=== PATIENT | female | born 1965 | race Caucasian/White ===

== ENCOUNTER 2017-12-09 10:56 | Observation (INO) ==
[2017-12-09] MEDS ORDERED: Aspirin 81 MG TAB.CHEW PO ONE (11:14)
[2017-12-09] MEDS ORDERED: Nitroglycerin 0.4 MG TAB.SUBL SL ONE ×2 (11:14→12:21)
--- NOTE | 2017-12-09 11:32 | Emergency Department Note ---
Disposition Clinical Impression: Chest pain Qualifiers: Chest pain type: unspecified Qualified Code(s): R07.9 - Chest pain, unspecified Disposition: Admitted As Inpatient Condition: Good Referrals: Ling Pelaez MD [Primary Care Provider] - Forms: ED Satisfaction Letter Time of Disposition: 12:54 General Adult HPI - General Chief complaint: ED Chest Pain Stated complaint: CP Time Seen by Provider: 12/09/17 11:08 Source: patient Mode of arrival: ambulatory Limitations: no limitations Nursing Notes Reviewed: Yes Vital Signs Reviewed: Yes - History of Present Illness HPI Narrative: 52 year old female with significant past medical history of hypothyroidism and hypotension presenting to the ED with chief complaint of chest pain. Patient states approximately 45 minutes prior to arrival she was walking around at work when she started having substernal chest pain. Denies nausea or diaphoresis with this. She went to the nurses station at work where they took her blood pressure and it was elevated at 150-160 systolic. Patient states she then decided to come to the emergency department. Patient denies any recent illnesses or fevers. Denies any stents or CABG. Patient has followed with Dr. Gillette in the past for her hypotension. Patient did have a stress test and cath completed 3-5 years ago. Patient still having chest pain at this time. Patient also states her chest pain in causing her some shortness of breath. Pain Scale: 4 - Related Data Home Medications Medication Instructions Recorded Confirmed Gabapentin [Neurontin] 300 mg PO TID 04/27/15 12/09/17 Levothyroxine [Synthroid] 75 mcg PO 0630 04/27/15 12/09/17 Meloxicam [Meloxicam] 15 mg PO DAILY 12/09/17 12/09/17 Previous Rx's Medication Instructions Recorded Cyclobenzaprine [Flexeril] 10 mg PO TID #15 tablet 10/13/16 Allergies Allergy/AdvReac Type Severity Reaction Status Date / Time Iodinated Contrast- Oral and Allergy Hives Verified 12/09/17 11:05 IV Dye Sulfa (Sulfonamide AdvReac Hives Verified 12/09/17 11:04 Antibiotics) All systems ED: reviewed and negative except as stated. Cardiovascular: Reports: chest pain Respiratory: Reports: dyspnea Neurological: Reports: headache Past Medical History - Past Medical History Attestation: Yes The following information was validated with the patient. Medical history: Reports: thyroid disease, other Surgical history: Reports: appendectomy, cholecystectomy, hysterectomy Psychiatric history: Reports: no psych history [employer] history: Reports: cervical cancer - Social History Smoking Status: Never smoker Smokeless Tobacco Status: No Alcohol use: Reports: none Drug use: Reports: none Physical Exam - General Limitations: no limitations General appearance: alert, in no apparent distress - Head Head exam: atraumatic, normocephalic, normal inspection - Eye Eye exam: Present: normal appearance. Absent: scleral icterus, conjunctival injection - ENT ENT exam: normal exam, mucous membranes moist - Neck Neck exam: Present: normal inspection, full ROM. Absent: tenderness, meningismus - Chest Chest inspection: Present: normal inspection, symmetric chest wall rise. Absent : tenderness, rash - Respiratory Respiratory exam: Present: normal lung sounds bilaterally. Absent: respiratory distress, wheezes - Cardiovascular Cardiovascular exam: Present: regular rate, normal rhythm, normal heart sounds - Abdominal Exam Abdominal exam: Present: soft, Non-Tender. Absent: distention, guarding, rebound - Extremities Exam Extremities exam: Present: normal inspection, full ROM - Neurological Exam Neurological exam: Present: alert, oriented X3 - Psychiatric Psychiatric exam: Present: normal affect, normal mood - Skin Skin exam: Present: warm, intact Course Course Narrative: 52 year old female presenting to the ED with chief complaint of chest pain. Acute onset approximately 45 minutes ago. Patient still having chest pain at this time. We will perform chest pain work up including troponin, ekg, and chest xray. We will also provide the patient with aspirin and nitro. Patient is alert and oriented x3 in the room with stable vital signs. Disposition most likely admission for chest pain but pending results. Patient agrees with this plan. - Reevaluation(s) Reevaluation #1: Patient's chest pain was alleviated with sublingual nitro. came back approximately 30 minutes after sublingual nitro was completed. We added nitro paste for the patient. All labs and chest xray WNL. We will plan to admit the patient at this time for chest pain. Patient is alert and oriented x3 in the room with stable vital signs. I spoke with the hospitalist aviation mechanic Dr. Coffey who agrees to accept the patient at this time. Patient agrees with this plan. Vital Signs Temperature 97.7 F 12/09/17 11:01 Pulse Rate 86 03/21/18 11:01 Respiratory Rate 20 12/09/17 11:01 Blood Pressure 152/80 12/09/17 11:01 O2 Sat by Pulse Oximetry 100 12/09/17 11:01 Temperature 97.7 F 12/09/17 11:01 Pulse Rate 79 12/09/17 12:28 Respiratory Rate 18 12/09/17 12:28 Blood Pressure 128/79 12/09/17 12:28 O2 Sat by Pulse Oximetry 99 12/09/17 12:28 Oxygen Delivery Oxygen Delivery Nasal Cannula Medical Decision Making - Medical Records Medical records reviewed: Yes I reviewed the patient's medical records. - Lab Data Lab results reviewed: Yes I reviewed the patient's lab results. Result diagrams: 12/09/17 11:26 12/09/17 11: Lab Results 12/09/17 12/09/17 Range/Units 11:26 11:26 WBC 6.4 (4.3-11.1) K/mcL RBC 4.06 (3.82-4.97) M/mcL Hgb 12.4 (11.5-15.4) g/dL Hct 36.1 (35.3-44.9) % MCV 88.9 (83.0-100.0) fL MCH 30.5 (28.0-33.3) pg MCHC 34.3 (31.6-35.5) g/dL RDW 12.1 (11.5-14.5) % Plt Count 249 (140-400) K/mcL MPV 9.0 L (9.4-12.4) fL Immature Gran % 0.2 (0-4) % Seg Neutrophils % 57.6 % Lymphocytes % 28.1 % Monocytes % 8.3 % Eosinophils % 4.1 % Basophils % 1.7 % Neutrophils # 3.7 (1.6-8.9) K/mcL Lymphocytes # 1.8 (0.6-4.6) K/mcL Monocytes # 0.5 (0.0-1.3) K/mcL Eosinophils # 0.3 (0.0-0.6) K/mcL Basophils # 0.1 (0.0-0.2) K/mcL Sodium 138 (136-145) mEq/L Potassium 3.9 (3.5-5.1) mEq/L Chloride 104 (98-107) mEq/L Carbon Dioxide 24 (23-29) mEq/L BUN 12 (6-20) mg/dL Creatinine 0.82 (0.60-1.20) mg/dL Est GFR ( Amer) > 60 (> 60) Est GFR (Non-Af Amer) > 60 (> 60) BUN/Creatinine Ratio 15 (6-26) Glucose 95 (70-105) mg/dL Calculated Osmolality 286 (280-300) Calcium 10.2 (8.6-10.3) mg/dL Troponin I < 0.03 (< 0.04) ng/mL TSH 1.185 (0.340-5.600) mcIU/mL - Radiology Data Radiology results reviewed: Yes I reviewed the patient's radiology results. Chest X-Ray 12/09/17 11:09 IMPRESSION: 1. No active pulmonary disease. D/ / Regan Barker MD / Regan Barker MD Interpreting Provider: Regan Barker MD - EKG Data EKG #1 EKG attestation: Yes I reviewed and interpreted this EKG. EKG results narrative: Sinus rhythm 95 BPM. CO interval 1369, QRS 93, QTc 411. No signs of acute st segment elevation or ischemia. Excess motion artifact. Compared to previous ekg completed on 05/18/13 no significant changes noted. Attestation Statement - Attestation Attestation: I examined this patient and my medical decision-making was reviewed with the Resident Physician I agree with the documented findings, disposition and treatment plan as described except to the extent set forth below. Patient's 52-year-old white female with a history of hypothyroidism who presents here today with 45 minute history of substernal chest pressure and tightness. Pain is nonradiating it is associated with some shortness of breath. Patient denies any diaphoresis, no nausea vomiting, no abdominal pain or flank pain, no lightheadedness or syncope. Patient states she has had a heart catheter in the past which was normal approximately 3 years ago and no testing since that time. Patient arrives with 5 out of 10 pain that is reduced from 8 out of 10 at time of onset. I agree with patient's physical exam findings as documented. Vital signs are stable on arrival. Patient appears anxious but in no acute distress. Patient was administered aspirin and nitroglycerin trial which relieved her pain and paste was placed on her chest. Blood pressure remained stable. Laboratory evaluation EKG and chest x-ray were obtained. EKG shows a normal sinus rhythm without acute ischemia unchanged from prior EKGs. Labs and chest x -ray are within normal limits including a normal troponin and TSH. Case was discussed with the hospitalist and will be admitted for further evaluation of chest pain.
[2017-12-09] MEDS: 0.9 % Sodium Chloride 1,000 ML IVC SCH ×2 (11:33→15:02)
[2017-12-09 11:50] LABS: Basophils # 0.1 K/mcL (0.0-0.2); Basophils % 1.7 %; Eosinophils # 0.3 K/mcL (0.0-0.6); Eosinophils % 4.1 %; Hematocrit 36.1 % (35.3-44.9); Hemoglobin 12.4 g/dL (11.5-15.4); Immature Granulocytes % 0.2 % (0-4); Lymphocytes # 1.8 K/mcL (0.6-4.6); Lymphocytes % 28.1 %; Mean Corpuscular HGB Conc 34.3 g/dL (31.6-35.5); Mean Corpuscular Hemoglobin 30.5 pg (28.0-33.3); Mean Corpuscular Volume 88.9 fL (83.0-100.0); Monocytes # 0.5 K/mcL (0.0-1.3); Monocytes % 8.3 %; Neutrophils # 3.7 K/mcL (1.6-8.9); Platelet Count 249 K/mcL (140-400); Red Blood Count 4.06 M/mcL (3.82-4.97); Red Cell Distribution Width 12.1 % (11.5-14.5); Segmented Neutrophils % 57.6 %
[2017-12-09 12:08] LABS: BUN/Creatinine Ratio 15 (6-26); Blood Urea Nitrogen 12 mg/dL (6-20); Calcium 10.2 mg/dL (8.6-10.3); Carbon Dioxide 24 mEq/L (23-29); Chloride 104 mEq/L (98-107); Glucose 95 mg/dL (70-105); Osmolality,Calculated 286 (280-300); Potassium 3.9 mEq/L (3.5-5.1); Sodium 138 mEq/L (136-145); Troponin I < 0.03 ng/mL (< 0.04); eGFR For African Americans > 60 (> 60); eGFR For Non-African Americans > 60 (> 60)
[2017-12-09 12:21] LABS: Thyroid Stimulating Hormone 1.185 mcIU/mL (0.340-5.600)
[2017-12-09] MEDS ORDERED: Nitroglycerin 1 INCH/GM PACKET TP ONE (12:31)
[2017-12-09] MEDS ORDERED: Naloxone 0.4 MG/ML INJ IVP PRN (13:39)
--- NOTE | 2017-12-09 13:59 | Internal Med History&Physical ---
<Andreas Patel - Last Filed: 12/09/17 13:55> Date of Encounter: 12/09/17 Time of Encounter: 13:55 Assessment and Plan (1) Chest pain Current visit: Yes Status: Acute ASSESSMENT: She presents today with exerional, dull substernal chest pain with radiation to the left posterior deltoid which began this morning. She reports that the pain was dull and constant. It improved with nitro. She denies any h/o OK, no H/O CAD. She reports that her last cardiac workup was 3-years ago and included a stress test, echo, and tilt table. No ischemia was found during that workup. She is a non-smoker. Her risk factors include obesity, and family history. She is reporting allergies to IVP dye. PLAN: - cardiac enzymes x 2 q 6 hr - EKG show no ischemia - ASA 81mg dialy - Simvastatin 40mg daily first dose now - NPO after midnight - Continuous tele and spo2 monitoring - O2 by NC to keep SpO2 greater than 92% - CBCD, BMP in AM - Fasting lipids - Resume home medications - Heparin 5000 U SQ BID - 2D Echo - Stress test in the am - Consult Cardio based upon results of TTE and stress test Qualifiers: Chest pain type: unspecified Qualified Code(s): R07.9 - Chest pain, unspecified (2) Hypotension Current visit: Yes Status: Acute Qualifiers: Qualified Code(s): I95.9 - Hypotension, unspecified (3) Hypothyroidism Current visit: Yes Status: Acute Resume synthroid Qualifiers: Qualified Code(s): E03.9 - Hypothyroidism, unspecified (4) DVT prophylaxis Current visit: Yes Status: Acute Heparin 5000 units SC BID Internal Medicine - H&P: HPI Chief complaint: chest pain Admitted From: Home Plans for Post Hospital Care: Home History of present illness: Ms. Rm is a 52 year old female with a PMH of hypotension and hypothyroidism. She presents to [facility] today with c/o substernal, dull, exertional chest pain with radiation to the left posterior deltoid which she rates 4/10 at the worst. She reports that the chest pain began this morning around 10am while she was at work performing her daily activities. She also has c/o tightness/pressure. She has some associated shortness of breath but denies any nausea or diaphoresis. She denies any prior h/o OK, and reports that her last cardiac workup was 3-years ago and found to be negative. She denies any fevers, chills, syncope, vision changes, cough, or unilateral extremity swelling or pain. While in the ED she received 3SL Nitro and the chest pain subsided. She was placed on a nitro paste patch and is CP free as of my assessment. Initial troponin negative, CXR show no acute findings, and EKG is without ischemia. Past Med Surg Social Fam HX - Past Medical History Medical history: thyroid disease, other Psychiatric history: no psych history - Past Surgical History Surgical History: appendectomy, cholecystectomy, hysterectomy - Social History Smoking Status: Never smoker Smokeless Tobacco Status: No Alcohol use: none Drug use: none - Family History Mother Hx Family Cardiac Disorders: Yes (mi) Father Hx Family Cardiac Disorders: Yes (mi) Internal Medicine - H&P: Meds Gabapentin [Neurontin] 300 mg PO TID 04/27/15 [History] Levothyroxine [Synthroid] 75 mcg PO 0630 04/27/15 [History] Cyclobenzaprine [Flexeril] 10 mg PO TID #15 tablet 10/13/16 [Rx] Meloxicam [Meloxicam] 15 mg PO DAILY 12/09/17 [History] 3 Allergy/AdvReac Type Severity Reaction Status Date / Time Iodinated Contrast- Oral and Allergy Hives Verified 12/09/17 11:05 IV Dye Sulfa (Sulfonamide AdvReac Hives Verified 12/09/17 11:04 Antibiotics) All Systems PM: A 10-system review of systems was performed and is negative for pertinent findings except as documented above in the HPI. - Constitutional Constitutional: no chills, no fever(s), no night sweats - EENT Eyes: no change in vision, no discharge, no pain, no photophobia Ears: no ear discharge, no ear pain, no tinnitus Nose, mouth and throat: no dysphagia, no nasal discharge, no neck pain, no sore throat - Cardiovascular Cardiovascular ROS IM: as per HPI, chest pain, dyspnea on exertion, no diaphoresis, no dyspnea, no edema, no irregular heart rhythm, no lightheadedness , no palpitations, no syncope - Respiratory Respiratory: as per HPI, dyspnea on exertion, no cough, no dyspnea, no wheezing , no excessive phlegm production - Gastrointestinal Gastrointestinal: no abdominal pain, no diarrhea, no hematemesis, no hematochezia, no melena, no nausea, no vomiting - Genitourinary Genitourinary: no change in urinary stream, no dysuria, no flank pain, no hematuria - Musculoskeletal Musculoskeletal ROS IM: no numbness, no tingling - Integumentary Integumentary IM: no rash, no unusual bruising - Neurological Neurological ROS: no confusion, no convulsions, no focal weakness, no numbness, no tingling, no tremor(s) - Hematologic/Lymphatic Hematologic/Lymphatic: no easy bruising - Constitutional Vitals: Temp Pulse Resp BP Pulse Ox 97.8 F 79 18 128/78 99 12/09/17 13:52 12/09/17 12:28 12/09/17 13:52 12/09/17 13:52 12/09/17 12:28 General appearance: Present: cooperative, A&O X 3, no acute distress, answers questions appropriately - Head Head exam: Present: atraumatic, normocephalic - Eye Eye exam: Present: PERRL, conjuntiva pink, sclera anicteric Pupils: Present: PERRL - Neck Neck exam general surgery: Present: supple, trachea midline. Absent: lymphadenopathy - Respiratory Respiratory exam: Present: CTAB. Absent: accessory muscle use, rales, rhonchi, wheezes - Cardiovascular Cardiovascular exam: Present: RRR, +S1, +S2. Absent: diastolic murmur, gallop, rubs, systolic murmur - GI/Abdominal GI/Abdominal exam: Present: normal bowel sounds, soft, no peritoneal signs. Absent: distended, tenderness - Extremities Exam Extremities exam: Present: warm, radial pulses palpable and symmetrical. Absent : calf tenderness, cyanotic, pedal edema - Neurological Exam Neurological exam: Present: CN II-XII intact, oriented X3, no focal deficits. Absent: pronater drift, facial droop, speech deficit - Skin Skin exam: Present: dry, intact Internal Med - H&P Results - Labs CBC & Chem 7: 12/09/17 11:26 12/09/17 11:26 - EKG Data -: EKG Interpreted by Myself EKG shows normal: sinus rhythm Rate: normal - EKG Data Prior EKG available for review: no - Impressions Impressions Chest X-Ray 12/09/17 11:09 IMPRESSION: 1. No active pulmonary disease. D/ / Regan Barker MD / Regan Barker MD Interpreting Provider: Regan Barker MD <Oxana Coffey - Last Filed: 12/09/17 16:53> Date of Encounter: 12/09/17 Time of Encounter: 14:00 Internal Medicine - H&P: HPI History of present illness: Ms. Rm is a 52 year old female All Systems PM: A 10-system review of systems was performed and is negative for pertinent findings except as documented above in the HPI. - Constitutional Vitals: Temp Pulse Resp BP Pulse Ox 97.8 F 77 18 124/77 97 12/09/17 14:18 12/09/17 14:18 12/09/17 14:18 12/09/17 14:18 12/09/17 14:18 Internal Med - H&P Results - Labs CBC & Chem 7: 12/09/17 11:26 12/09/17 11:26 - Attending Attestation I examined this patient and my medical decision-making was reviewed with the Nurse Practitioner, Andreas Patel. I agree with the documented findings, disposition and treatment plan as described with any changes as documented below. 52-year-old patient presenting with chest pain while at work. Central in location with mild radiation to the left shoulder and back and improved with nitroglycerin. No prior cardiac history but does have positive family history of coronary artery disease. Will hospitalize patient and observe with telemetry. Trend troponins. Check 2-D echocardiogram. Plan for stress test tomorrow.
[2017-12-09] MEDS: Gabapentin 300 MG CAPSULE PO SCH ×2 (14:37→20:14)
[2017-12-09] MEDS: *HR* Heparin 5,000 UNIT/ML VIAL SQ SCH (17:09)
[2017-12-09] MEDS ORDERED: Nitroglycerin 1 INCH/GM PACKET TP SCH (18:00)
[2017-12-10 04:50] LABS: Hematocrit 33.9 % (35.3-44.9); Hemoglobin 11.5 g/dL (11.5-15.4); Mean Corpuscular HGB Conc 33.9 g/dL (31.6-35.5); Mean Corpuscular Hemoglobin 30.7 pg (28.0-33.3); Mean Corpuscular Volume 90.6 fL (83.0-100.0); Mean Platelet Volume 8.9 fL (9.4-12.4); Platelet Count 210 K/mcL (140-400); Red Blood Count 3.74 M/mcL (3.82-4.97); Red Cell Distribution Width 12.3 % (11.5-14.5)
[2017-12-10 05:09] LABS: BUN/Creatinine Ratio 14 (6-26); Blood Urea Nitrogen 10 mg/dL (6-20); Calcium 8.9 mg/dL (8.6-10.3); Carbon Dioxide 23 mEq/L (23-29); Chloride 111 mEq/L (98-107); Chol/HDL Ratio 3.5 (0-4.9); Cholesterol 197 mg/dL (< 200); Glucose 94 mg/dL (70-105); HDL Cholesterol 56 mg/dL (40-59); LDL Cholesterol,Calculated 126 mg/dL (0-99); Osmolality,Calculated 289 (280-300); Potassium 3.6 mEq/L (3.5-5.1); Sodium 140 mEq/L (136-145); Triglycerides 76 mg/dL (< 150); eGFR For African Americans > 60 (> 60); eGFR For Non-African Americans > 60 (> 60)
[2017-12-10] MEDS: *HR* Heparin 5,000 UNIT/ML VIAL SQ SCH (05:34)
[2017-12-10] MEDS ORDERED: Aspirin 81 MG TAB.CHEW PO SCH (09:00)
[2017-12-10] MEDS: 0.9 % Sodium Chloride 1,000 ML IVC SCH (10:28)
[2017-12-10 10:50] VITALS: BP 128/84
[2017-12-10] MEDS ORDERED: Regadenoson 0.4 MG/5 ML SYRINGE IVP ONE (11:36)
[2017-12-10] MEDS: Gabapentin 300 MG CAPSULE PO SCH ×2 (13:13→13:15)
--- NOTE | 2017-12-10 14:30 | Discharge Summary ---
Orders not resulted at time of discharge: Pending orders 12/10/17 10:32 NM carlos a perf SPECT multi [NM] Routine Date of Encounter: 12/10/17 Time of Encounter: 09:15 - Discharge Diagnosis (1) Chest pain Priority: Primary Status: Acute Qualifiers: Chest pain type: unspecified Qualified Code(s): R07.9 - Chest pain, unspecified (2) Hypothyroidism Priority: Secondary Status: Chronic Qualifiers: Hypothyroidism type: unspecified Qualified Code(s): E03.9 - Hypothyroidism , unspecified Hospital course: Ms. Rm is a 52 year old female who is admitted with retrosternal chest pain and tightness. Initial EKG and chest x-ray showed no acute abnormality or ischemic findings. Telemetry monitoring remained uneventful. Serial troponins were negative. Patient was noted to have elevated blood pressure at presentation, which subsequently improved. She reports having episodes of dizzy spells associated with hypotension and is not on antihypertensives at home. Patient underwent nuclear stress test, which was negative for ischemia or infarct. At this time, she is medically stable for discharge. She is encouraged to follow up with her PCP and cardiology in the event of continued chest pains. Discharge discussed with: patient - Time Spent with Patient Total time spent providing and/or coordinating discharge services: Greater than 30 minutes (40 min) - Discharge Medications Home Medications: Gabapentin [Neurontin] 300 mg PO TID 04/27/15 [History] Levothyroxine [Synthroid] 75 mcg PO 0630 04/27/15 [History] Cyclobenzaprine [Flexeril] 10 mg PO TID #15 tablet 10/13/16 [Rx] Meloxicam 15 mg PO DAILY 12/09/17 [History] Allergies/Adverse Reactions: 3 Allergy/AdvReac Type Severity Reaction Status Date / Time Iodinated Contrast- Oral and Allergy Hives Verified 12/09/17 11:05 IV Dye Sulfa (Sulfonamide AdvReac Hives Verified 12/09/17 11:04 Antibiotics) Date of admission: 12/09/17 13:03 Primary care physician: Ling Pelaez MD Discharging clinician: Ashlie Dillon Anticipated date of discharge: 12/10/17 - Constitutional Vitals: Temp Pulse Resp BP Pulse Ox 97.8 F 75 15 128/84 100 12/10/17 10:48 12/10/17 10:48 12/10/17 10:48 12/10/17 10:48 12/10/17 10:48 General appearance: Present: cooperative, A&O X 3, answers questions appropriately - Cardiovascular Cardiovascular exam: Present: RRR, +S1, +S2. Absent: diastolic murmur, gallop, rubs, systolic murmur - Patient Status Disposition: Home, Self-Care Condition: Good Functional capacity at discharge: independent ambulation Overall status at discharge: patient is progressing back to baseline - Discharge Instructions Instructions: Chest Pain (GEN) Follow Up With: Ling Pelaez MD [Primary Care Provider] - 12/17/17 3:00 pm - Diet and Activity Activity: resume usual activities as tolerated Diet: low fat, low cholesterol, low salt diet
--- NOTE | 2017-12-11 14:43 | Electrocardiograph Report ---
[place] [id number] Test Date: 2017-12-09 Pat Name: Heydi Rm Department: 104 Room: 3A16 Gender: F Paper Machine Tender: MONTSE : 1965 Requested By: Padmini See Order Number: [id number] Reading MD: Stuart Shultz DO Measurements Intervals [place] Rate: 95 P: 50 AR: 139 QRS: 56 QRSD: 93 T: 76 QT: 359 QTc: 411 Interpretive Statements SINUS RHYTHM Electronically Signed On 12-11-2017 14:42:33 EDT by Stuart Shultz DO
== END 2017-12-10 15:45 | disposition home or self-care (01) ==
LOC: 3ANU 10:56 → EMEROO 10:56 → 3ANU 13:54
PROVIDERS: ADMIT Nurse Practitioner; ATTEND Internal Medicine